=== PATIENT | male | born 1980 | race Caucasian/White ===

== ENCOUNTER 2016-05-11 18:35 | Emergency (ER) ==
[2016-05-11 18:35] VITALS: BMI 37.3
[2016-05-11] MEDS ORDERED: EYE-STREAM OP STA (18:38)
[2016-05-11] MEDS ORDERED: FLUORETS OP STA (18:38)
[2016-05-11] MEDS ORDERED: TETRACAINE 0.5% UNIT-DOSE OP STA (18:38)
[2016-05-11 18:44] VITALS: BP 149/100; TEMP 98.7
[2016-05-11] MEDS ORDERED: GENTAK OPTH OINT OP ONE (18:54)
[2016-05-11] MEDS ORDERED: GENTAK OPTH OINT OP STA (18:54)
--- NOTE | 2016-05-11 18:57 | ED.PDOC ---
General ED Provider: Dr. LAUREEN CUENCA-ER Chief Complaint: Eye Problem Stated Complaint: i got a piece of something in mhy eye Time Seen by Physician: 18:55 Mode of Arrival: Walk-In Information Source: Patient Exam Limitations: No limitations [facility] Documentation Reviewed and Agree: Yes EENT Complaint Exam - Eye Complaint/Exam Onset/Duration: 2 days Symptoms Are: Still present Timing: Constant Initial Severity: Mild Current Severity: Mild Location: Discreet, Right Character: Reports: Dull, Throbbing, Foreign body sensation Aggravating: Reports: Light, Blinking Alleviating: Reports: None Associated Signs and Symptoms: Reports: Photophobia, Clear drainage. Denies: Purulent drainage, Vision impairment, Fever, Swelling Related History: Reports: Foreign body Eye Surgical History: Reports: None Penetrating Injury Risk Factors: None Globe Rupture Risk Factors: None Acute Glaucoma Risk Factors: None Optic Artery Occlusion Risk Factors: None Visual Field: Normal Extraocular Movement: Normal Orbit Findings: Normal Globe Findings: Intact Lid Findings: Normal Conjunctival Findings: Red Corneal Findings: Clear Fluorescein Uptake: Yes Fundi: Normal Slit Lamp Used: No Differential Diagnoses: Corneal Abrasion, Foreign Body Review of Systems - Review Of Systems Constitutional: Reports: No symptoms Eyes: Reports: Vision change, Pain, Photophobia Ears, Nose, Mouth, Throat: Reports: No symptoms Respiratory: Reports: No symptoms Cardiac: Reports: No symptoms GI: Reports: No symptoms : Reports: No symptoms Musculoskeletal: Reports: No symptoms Skin: Reports: No symptoms Neurological: Reports: No symptoms Endocrine: Reports: No symptoms Hematologic/Lymphatic: Reports: No symptoms All Other Systems: Reviewed and Negative Past Medical History - Past Medical History Previously Healthy: Yes Endocrine: Reports: None Cardiovascular: Reports: None Respiratory: Reports: None Hematological: Reports: None Gastrointestinal: Reports: None Genitourinary: Reports: None Neuro/Psych: Reports: None Musculoskeletal: Reports: Other (KNEE SURGERY 2004) Cancer: Reports: None Other Pertinent Past Medical History: SMOKER LESS THAN 1/2 PPD RESUMED [id number] - Surgical History General Surgical History: Reports: Orthopedic - Family History Family History: Reports: Unknown - Social History Smoking Status: Current every day smoker, Light tobacco smoker Hx Substance Use: No Alcohol Screening: None Lives: With family - Immunizations Tetanus Shot up to Date: Yes (1 year oago) Physical Exam - Physical Exam Appearance: Well-appearing, No pain distress, Well-nourished Eyes: VERONIKA, EOMI, Conjunctiva inflammed ENT: Ears normal, Nose normal, Oropharynx normal Neck: Supple Respiratory: Airway patent, Breath sounds clear, Breath sounds equal, Respirations nonlabored Cardiovascular: RRR, Pulses normal, No rub, No murmur GI/: Soft, Nontender, No masses, Bowel sounds normal, No Organomegaly Musculoskeletal: Normal strength, ROM intact, No edema, No calf tenderness Skin: Warm, Dry, Normal color Neurological: Sensation intact Psychiatric: Affect appropriate, Mood appropriate Critical Care Note - Critical Care Note Total Time (mins): 0 Course - Course Orders, Labs, Meds: Orders Category Date Time Status Eye [ED EYE PATCH] .ONCE EMERGENCY 05/11/16 18:38 Active Balanced Salt Solution [Eye-Stream] MEDS 05/11/16 18:38 Discontinued 1 bottle OP ONCE STA Fluorescein Sodium [Fluorets] MEDS 05/11/16 18:38 Discontinued 1 strip OP ONCE STA Gentamicin Sulfate [Gentak Opth Oint] MEDS 05/11/16 18:54 Stat 1 applic OP ONCE STA Tetracaine HCl/Pf [Tetracaine 0.5% Unit-Dose] MEDS 05/11/16 18:38 Discontinued 2 drop OP ONCE STA Medications Discontinued Medications Generic Name Dose Route Start Last Admin Trade Name Freq PRN Reason Stop Dose Admin Eye Irrigation Solution 1 bottle 05/11/16 18:38 Eye-Stream OP 05/11/16 18:39 ONCE STA Fluorescein Sodium 1 strip 05/11/16 18:38 Fluorets OP 05/11/16 18:39 ONCE STA Tetracaine HCl 2 drop 05/11/16 18:38 Tetracaine 0.5% Unit-Dose OP 05/11/16 18:39 ONCE STA Vital Signs: Temp Pulse Resp BP Pulse Ox 05/11/16 18:35 98.7 F 99 H 20 149/100 H 98 Departure - Departure Time of Disposition: 18:56 Disposition: HOME SELF-CARE Discharge Problem: Corneal abrasion Qualifiers: Encounter type: initial encounter Laterality: right Qualifier Code: (S05.01XA) Injury of conjunctiva and corneal abrasion without foreign body, right eye, initial encounter Instructions: Corneal Abrasion (ED) Condition: Good Pt referred to PMD for follow-up: Yes Additional Instructions: keep eye patched--norco 7.5mg q 4hrs prn #10--reapply ointment in am--it is very important to see your eye doctor tomorrow Allergies/Adverse Reactions: Allergies hazelnut Adverse Reaction (Verified 05/11/16 18:45) Home Medications: Ambulatory Orders 1 [No Reported Medications] 05/11/16 Disposition Discussed With: Patient, Family
== END 2016-05-11 19:16 | disposition home or self-care (01) ==
LOC: ED 18:35
DX: S05.01XA Injury of conjunctiva and corneal abrasion without foreign body, right eye, initial encounter (principal); F17.210 Nicotine dependence, cigarettes, uncomplicated
CPT/HCPCS: 99283

== ENCOUNTER 2017-02-27 09:02 | Emergency (ER) ==
[2017-02-27 09:05] VITALS: TEMP 97.7; BMI 36.6
--- NOTE | 2017-02-27 09:31 | ED.PDOC ---
General ED Provider: Dr. LAUREEN FIELDS Chief Complaint: Tooth Problem Stated Complaint: Complains of severe oral/dental pain involving his Rt Lower gumline with swelling of submandibular glandular region.State has a dental disease in which his teeth decay and is scheduled to have multiple extractions next Sunday. was chewing on a jaw breaker last week when he fractured a tooth on lower rt side. In excruciating pain being given Naproxen and Tylenol at home without relief. Requesting meds for control of pain. Time Seen by Physician: 09:20 Mode of Arrival: Walk-In Information Source: Patient, Family Exam Limitations: No limitations Primary Care Provider: OUMOU SLADE Nursing and Triage Documentation Reviewed and Agree: Yes Reviewed sepsis parameters & appropriate labs ordered?: Yes System Inflammatory Response Syndrome: Not Applicable Sepsis Protocol: For patient's 13 years and over: Temp is 96.8 and below OR 101 and greater Pulse >90 BPM Resp >20/minute Acutely Altered Mental Status Are patient's symptoms suggestive of a new infection, such as: -Pneumonia -Skin, Soft Tissue -Endocarditis -UTI -Bone, Joint Infection -Implantable Device -Acute Abdominal Infection -Wound Infection -Meningitis -Blood Stream Catheter Infection -Unknown System Inflammatory Response Syndrome: Not Applicable Review of Systems - Review Of Systems Constitutional: Reports: Loss of appetite. Denies: Chills, Fever, Malaise Eyes: Reports: No symptoms Ears, Nose, Mouth, Throat: Reports: Mouth pain (Multiple sites of dental caries and upper and lower gum line), Loose teeth Respiratory: Reports: No symptoms Cardiac: Reports: No symptoms GI: Reports: No symptoms : Reports: No symptoms Musculoskeletal: Reports: No symptoms Skin: Reports: No symptoms Neurological: Reports: No symptoms Endocrine: Reports: No symptoms Hematologic/Lymphatic: Reports: No symptoms All Other Systems: Reviewed and Negative Past Medical History - Past Medical History Previously Healthy: Yes Endocrine: Reports: None Cardiovascular: Reports: None Respiratory: Reports: None Hematological: Reports: None Gastrointestinal: Reports: None Genitourinary: Reports: None Neuro/Psych: Reports: None Musculoskeletal: Reports: Other (KNEE SURGERY 2004) Cancer: Reports: None Other Pertinent Past Medical History: SMOKER LESS THAN 1/2 PPD RESUMED [id number] - Surgical History General Surgical History: Reports: Orthopedic - Family History Family History: Reports: Unknown - Social History Smoking Status: Current every day smoker, Heavy tobacco smoker Hx Substance Use: No Alcohol Screening: Occasionally - Immunizations Tetanus Shot up to Date: Yes Physical Exam - Physical Exam Appearance: Well-appearing Ill-appearing: None Pain Distress: Moderate Eyes: VERONIKA, EOMI, Conjunctiva clear, Conjunctiva inflammed ENT: Ears normal, Nose normal, Oropharynx normal (Multiple oral dental cavities and decay) Neck: Supple Respiratory: Airway patent Cardiovascular: RRR GI/: Soft Musculoskeletal: Normal strength Skin: Warm Neurological: Sensation intact, Motor intact, Reflexes intact, Cranial nerves intact, Alert, Oriented Psychiatric: Affect appropriate Critical Care Note - Critical Care Note Total Time (mins): 0 Course - Course Vital Signs: Temp Pulse Resp BP Pulse Ox 02/27/17 09:02 97.7 F 92 H 20 189/118 H 98 Departure - Departure Time of Disposition: 10:45 Disposition: HOME SELF-CARE Discharge Problem: Infected dental carries, Elevated blood pressure reading Instructions: Dental Abscess (GEN) Condition: Good Pt referred to PMD for follow-up: Yes (within next 2 days) Additional Instructions: Take meds as directed Follow up [facility] Dr Slade at office later this week Apply ice pack to rt facial and jaw region for relief of pain and swelling Have BP monitored Prescriptions: Hydrocodone/Acetaminophen [Sapphire 5-325 Tablet] 1 each PO Q6HR PRN #10 tablet PRN Reason: Mouth Sore Pain Amoxicillin/Potassium Clav [Augmentin 875-125 Tablet] 1 each PO BID #20 tablet Ondansetron [Zofran Odt] 4 mg PO Q8H #10 tab.rapdis Allergies/Adverse Reactions: Allergies hazelnut Adverse Reaction (Verified 05/11/16 18:45) Home Medications: Ambulatory Orders Amoxicillin/Potassium Clav [Augmentin 875-125 Tablet] 1 each PO BID #20 tablet 02/27/17 Hydrocodone/Acetaminophen [Sapphire 5-325 Tablet] 1 each PO Q6HR PRN #10 tablet 11/06 Ondansetron [Zofran Odt] 4 mg PO Q8H #10 tab.rapdis 02/27/17
[2017-02-27] MEDS ORDERED: DILAUDID 1 MG/ML SYRINGE IM STA (10:12)
[2017-02-27 10:58] VITALS: BP 147/85
== END 2017-02-27 10:50 | disposition home or self-care (01) ==
LOC: ED 09:02
DX: K04.7 Periapical abscess without sinus (principal); K02.7 Dental root caries; R03.0 Elevated blood-pressure reading, without diagnosis of hypertension; F17.210 Nicotine dependence, cigarettes, uncomplicated
CPT/HCPCS: 96372; 99283